=== PATIENT | male | born 1965 | race Caucasian/White ===

== ENCOUNTER → 2017-09-08 | Outpatient (CLI) | payer OTHER ==
[~2017-09-08] MED LIST: ATOR10TA9 PO; CINN500C2 PO; GABA100C PO; MAGN400T7 PO; MELO15TA24 PO; NIAC500T10 PO
[2017-09-08 12:36] LABS: HEMOGLOBIN 15.3 g/dL (13.7-18.0); WHITE BLOOD COUNT 6.9 x10^3/uL (3.4-10)
[2017-09-08 12:46] LABS: BLOOD UREA NITROGEN 25 mg/dL (7-18)
== END | disposition home or self-care (01) ==
LOC: STAR 11:25
PROVIDERS: ATTEND Neurological Surgery
DX: Z01.818 Encounter for other preprocedural examination (principal); M51.36 Other intervertebral disc degeneration, lumbar region; R79.1 Abnormal coagulation profile
CPT/HCPCS: 36415; 71020; 80048; 81003; 85025; 85610; 85730; 93005

== ENCOUNTER 2017-09-24 10:00 | Inpatient (IN) | payer OTHER ==
[~2017-09-24] VITALS: Ht 172.7 cm; Wt 83.2 kg
[2017-10-21] MEDS ORDERED: VANCOMYCIN 1,000 MG ONE (06:51)
[2017-10-21] MEDS ORDERED: BACITRACIN 50,000 UNIT ONE (06:51)
[2017-10-21] MEDS ORDERED: BUPIVACAINE/PF 0.5% ONE ×2 (06:51→13:33)
[2017-10-21] MEDS ORDERED: THROMBIN 5,000 UNIT VIAL TP ONE ×2 (06:51→14:39)
[2017-10-21] MEDS ORDERED: LACTATED RINGERS 1,000 ML IV SCH (10:23)
[2017-10-21] MEDS ORDERED: ATOR20TA9 PO (10:51)
[2017-10-21 10:52] VITALS: BP 116/74
[2017-10-21 10:59] LABS: BASOPHILS # (AUTO) 0.03 x10^3/uL (0-0.1); BASOPHILS % (AUTO) 1 % (0-1); EOSINOPHILS # (AUTO) 0.57 x10^3/uL (0-0.4); EOSINOPHILS % (AUTO) 9 % (1-7); LYMPHOCYTES # (AUTO) 1.54 x10^3/uL (1-3.4); LYMPHOCYTES % (AUTO) 25 % (22-44); MD NO; MEAN CORPUSCULAR HEMOGLOBIN 28.4 pg (27.5-34.5); MEAN CORPUSCULAR HGB CONC 33.8 g/dL (33.2-36.2); MEAN PLATELET VOLUME 8.9 fL (7.4-10.4); MONOCYTES # (AUTO) 0.66 x10^3/uL (0.2-0.8); MONOCYTES % (AUTO) 11 % (2-9); NEUTROPHILS # (AUTO) 3.35 x10^3/uL (1.8-6.8); NEUTROPHILS % (AUTO) 55 % (42-75); PLATELET COUNT 161 x10^3/uL (130-400); RED BLOOD COUNT 5.49 x10^6/uL (4.38-5.82); RED CELL DISTRIBUTION WIDTH 12.7 % (9.4-14.8)
[2017-10-21 11:08] LABS: ANION GAP 7 mmol/L (5-15); CALCIUM 8.5 mg/dL (8.5-10.1); CHLORIDE 107 mmol/L (98-107); CREATININE 0.62 mg/dL (0.7-1.3)
[2017-10-21] MEDS ORDERED: MIDAZOLAM 1 MG/ML, 2ML ONE (11:47)
[2017-10-21] MEDS ORDERED: FENTANYL PF 250 MCG/5ML ONE ×2 (11:47→13:28)
[2017-10-21] MEDS ORDERED: ROCURONIUM 10 MG/ML,10ML ONE (11:48)
[2017-10-21] MEDS ORDERED: CEFAZOLIN 1,000 MG ONE ×2 (11:49)
[2017-10-21] MEDS ORDERED: SUCCINYLCHOLINE 20 MG/ML, 10ML ONE (11:49)
[2017-10-21] MEDS ORDERED: SODIUM CHLORIDE 0.9% PF 10ML ONE (11:49)
[2017-10-21] MEDS ORDERED: PROPOFOL 10 MG/ML, 20ML ONE (11:49)
[2017-10-21] MEDS ORDERED: PROMETHAZINE 25 MG/ML, 1ML IV PRN (13:30)
[2017-10-21] MEDS ORDERED: ONDANSETRON 2MG/ML, 2ML IVPush PRN ×2 (13:30→15:30)
[2017-10-21] MEDS ORDERED: MEPERIDINE/PF 25MG/0.5ML IVPush PRN (13:30)
[2017-10-21] MEDS ORDERED: OXYcodone 5 MG/5 ML ORAL.SOL UDC PO PRN (13:30)
[2017-10-21] MEDS ORDERED: ACETAMINOPHEN 325 MG TABLET PO PRN (13:30)
[2017-10-21] MEDS ORDERED: LABETALOL 5MG/ML, 20ML IV PRN (13:30)
[2017-10-21] MEDS ORDERED: FENTANYL PF 100 MCG/2ML IV PRN (13:30)
[2017-10-21] MEDS ORDERED: hydrALAzine 20 MG/ML, 1ML IV PRN (13:30)
[2017-10-21] MEDS ORDERED: EPINEPHRINE 1 MG/ML, 1ML ONE (13:33)
[2017-10-21] MEDS ORDERED: PROPOFOL 50 ML ONE (14:08)
[2017-10-21] MEDS ORDERED: DIPHENHYDRAMINE 50 MG/ML, 1ML IVPush PRN (15:30)
[2017-10-21] MEDS ORDERED: MEPERIDINE/PF 100 MG/ML IM PRN (15:30)
[2017-10-21] MEDS ORDERED: PHARMACY MAY ADJ FOR RENAL FX MC PRN (15:30)
[2017-10-21] MEDS ORDERED: morphine SULFATE 10 MG/ML, 1ML IVPush PRN (15:30)
[2017-10-21] MEDS ORDERED: MAGNESIUM HYDROXIDE 8%, 30ML UDC PO PRN (15:30)
[2017-10-21] MEDS ORDERED: HYDROmorphone PCA 30 MG/30 ML IV PRN (15:30)
[2017-10-21] MEDS ORDERED: METHOCARBAMOL 750 MG TABLET PO PRN (15:30)
[2017-10-21] MEDS ORDERED: BISACODYL 10 MG SUPP PR PRN (15:30)
[2017-10-21] MEDS ORDERED: PROMETHAZINE 25 MG/ML, 1ML IM PRN (15:30)
[2017-10-21] MEDS ORDERED: HYDROmorphone PCA 30 MG/30 ML ONE (15:41)
[2017-10-21] MEDS ORDERED: OXYcodone 5 MG/5 ML ORAL.SOL UDC ONE (15:42)
[2017-10-21] MEDS ORDERED: ACETAMINOPHEN 650 MG/20.3 ML UDC ONE (15:42)
[2017-10-21] MEDS: HYDROmorphone 1 MG/ML, 1ML IV PRN ×2 (15:56→16:04)
[2017-10-21] MEDS ORDERED: HYDROmorphone 2 MG/ML, 1ML ONE (16:02)
[2017-10-21] MEDS ORDERED: FENTANYL PF 100 MCG/2ML ONE (16:07)
[2017-10-21 19:10] VITALS: BP 100/54
[2017-10-21] MEDS: SODIUM CHLORIDE FLUSH 10ML SYR IVF SCH (21:00)
[2017-10-21] MEDS: ATORVASTATIN 20 MG TABLET PO SCH (22:39)
[2017-10-21] MEDS: CEFAZOLIN PMX 1GM/50ML 50 ML IVPB SCH (22:39)
[2017-10-21] MEDS: NS + 20MEQ KCL 1,000 ML IV SCH (23:18)
[2017-10-21 23:23] VITALS: BP 109/69
[2017-10-22 03:10] VITALS: BP 101/60
[2017-10-22] MEDS: NS + 20MEQ KCL 1,000 ML IV SCH ×2 (05:30→18:04)
[2017-10-22] MEDS: OXYcodone/APAP 10/325MG TABLET PO PRN ×5 (05:32→22:40)
[2017-10-22] MEDS: CEFAZOLIN PMX 1GM/50ML 50 ML IVPB SCH (05:32)
[2017-10-22 05:52] LABS: ANION GAP 6 mmol/L (5-15); CALCIUM 8.2 mg/dL (8.5-10.1); CHLORIDE 107 mmol/L (98-107)
[2017-10-22 06:01] LABS: BASOPHILS # (AUTO) 0.02 x10^3/uL (0-0.1); BASOPHILS % (AUTO) 0 % (0-1); EOSINOPHILS # (AUTO) 0.18 x10^3/uL (0-0.4); EOSINOPHILS % (AUTO) 2 % (1-7); LYMPHOCYTES # (AUTO) 1.37 x10^3/uL (1-3.4); LYMPHOCYTES % (AUTO) 16 % (22-44); MD NO; MEAN CORPUSCULAR HEMOGLOBIN 28.6 pg (27.5-34.5); MEAN CORPUSCULAR HGB CONC 33.8 g/dL (33.2-36.2); MEAN CORPUSCULAR VOLUME 84.5 fL (81-97); MEAN PLATELET VOLUME 9.2 fL (7.4-10.4); MONOCYTES # (AUTO) 1.15 x10^3/uL (0.2-0.8); MONOCYTES % (AUTO) 13 % (2-9); NEUTROPHILS # (AUTO) 6.14 x10^3/uL (1.8-6.8); NEUTROPHILS % (AUTO) 69 % (42-75); PLATELET COUNT 144 x10^3/uL (130-400); RED BLOOD COUNT 4.39 x10^6/uL (4.38-5.82); RED CELL DISTRIBUTION WIDTH 12.6 % (9.4-14.8)
[2017-10-22 08:30] VITALS: BP 108/69
[2017-10-22] MEDS: SODIUM CHLORIDE FLUSH 10ML SYR IVF SCH ×2 (09:00→21:09)
[2017-10-22] MEDS: SENNA/DOCUSATE TABLET PO SCH (09:31)
[2017-10-22] MEDS: MAGNESIUM OXIDE 400 MG TABLET PO SCH (09:31)
[2017-10-22] MEDS: GABAPENTIN 100 MG CAPSULE PO SCH (09:31)
[2017-10-22] MEDS: TIZANIDINE 4MG TABLET PO SCH ×2 (09:36→16:53)
[2017-10-22 14:30] VITALS: BP 121/63
[2017-10-22 18:57] VITALS: BP 128/73
[2017-10-22] MEDS: ATORVASTATIN 20 MG TABLET PO SCH (21:09)
[2017-10-23] MEDS: TIZANIDINE 4MG TABLET PO SCH ×3 (01:20→16:26)
[2017-10-23 01:36] VITALS: BP 146/85
[2017-10-23] MEDS: OXYcodone/APAP 10/325MG TABLET PO PRN ×5 (02:43→16:24)
[2017-10-23] MEDS: NS + 20MEQ KCL 1,000 ML IV SCH ×2 (04:30→11:22)
[2017-10-23 05:26] LABS: ANION GAP 4 mmol/L (5-15); CALCIUM 7.7 mg/dL (8.5-10.1); CHLORIDE 102 mmol/L (98-107)
[2017-10-23 05:28] LABS: CREATININE 0.63 mg/dL (0.7-1.3)
[2017-10-23 05:30] LABS: BASOPHILS # (AUTO) 0.02 x10^3/uL (0-0.1); BASOPHILS % (AUTO) 0 % (0-1); EOSINOPHILS # (AUTO) 0.16 x10^3/uL (0-0.4); EOSINOPHILS % (AUTO) 2 % (1-7); LYMPHOCYTES # (AUTO) 1.03 x10^3/uL (1-3.4); LYMPHOCYTES % (AUTO) 10 % (22-44); MD NO; MEAN CORPUSCULAR HEMOGLOBIN 28.9 pg (27.5-34.5); MEAN CORPUSCULAR HGB CONC 34.4 g/dL (33.2-36.2); MEAN PLATELET VOLUME 8.9 fL (7.4-10.4); MONOCYTES # (AUTO) 1.44 x10^3/uL (0.2-0.8); MONOCYTES % (AUTO) 14 % (2-9); NEUTROPHILS # (AUTO) 7.67 x10^3/uL (1.8-6.8); NEUTROPHILS % (AUTO) 74 % (42-75); PLATELET COUNT 132 x10^3/uL (130-400); RED BLOOD COUNT 3.85 x10^6/uL (4.38-5.82); RED CELL DISTRIBUTION WIDTH 12.5 % (9.4-14.8)
[2017-10-23 07:29] VITALS: BP 118/78
[2017-10-23] MEDS: MAGNESIUM OXIDE 400 MG TABLET PO SCH (09:54)
[2017-10-23] MEDS: SODIUM CHLORIDE FLUSH 10ML SYR IVF SCH ×2 (09:54→19:49)
[2017-10-23] MEDS: GABAPENTIN 100 MG CAPSULE PO SCH (09:54)
[2017-10-23] MEDS: SENNA/DOCUSATE TABLET PO SCH (09:54)
[2017-10-23] MEDS: DIAZEPAM 5 MG TABLET PO PRN ×2 (11:15→19:49)
[2017-10-23] MEDS ORDERED: OXYC-307 PO (12:22)
[2017-10-23 14:17] VITALS: BP 108/62
[2017-10-23 19:17] VITALS: BP 114/57
[2017-10-23] MEDS: ATORVASTATIN 20 MG TABLET PO SCH (19:49)
[2017-10-24] MEDS: NS + 20MEQ KCL 1,000 ML IV SCH ×2 (00:30→08:42)
[2017-10-24] MEDS: TIZANIDINE 4MG TABLET PO SCH ×2 (00:40→08:41)
[2017-10-24] MEDS: OXYcodone/APAP 10/325MG TABLET PO PRN ×4 (00:40→08:41)
[2017-10-24 01:20] VITALS: BP 109/66
[2017-10-24 05:23] LABS: MEAN CORPUSCULAR HEMOGLOBIN 28.5 pg (27.5-34.5); MEAN CORPUSCULAR VOLUME 83.9 fL (81-97); MEAN PLATELET VOLUME 8.8 fL (7.4-10.4); PLATELET COUNT 148 x10^3/uL (130-400); RED BLOOD COUNT 3.91 x10^6/uL (4.38-5.82); RED CELL DISTRIBUTION WIDTH 12.6 % (9.4-14.8)
[2017-10-24 05:35] LABS: CHLORIDE 100 mmol/L (98-107)
[2017-10-24 05:38] LABS: ANION GAP 6 mmol/L (5-15); CREATININE 0.59 mg/dL (0.7-1.3)
[2017-10-24 06:15] LABS: BASOPHILS # (AUTO) 0.02 x10^3/uL (0-0.1); BASOPHILS % (AUTO) 0 % (0-1); EOSINOPHILS # (AUTO) 0.17 x10^3/uL (0-0.4); EOSINOPHILS % (AUTO) 2 % (1-7); LYMPHOCYTES # (AUTO) 1.37 x10^3/uL (1-3.4); LYMPHOCYTES % (AUTO) 12 % (22-44); MD SCAN; MONOCYTES # (AUTO) 1.51 x10^3/uL (0.2-0.8); MONOCYTES % (AUTO) 14 % (2-9); NEUTROPHILS # (AUTO) 8.08 x10^3/uL (1.8-6.8); NEUTROPHILS % (AUTO) 73 % (42-75)
[2017-10-24 07:55] VITALS: BP 117/75
[2017-10-24] MEDS: MAGNESIUM OXIDE 400 MG TABLET PO SCH (08:41)
[2017-10-24] MEDS: SENNA/DOCUSATE TABLET PO SCH (08:41)
[2017-10-24] MEDS: SODIUM CHLORIDE FLUSH 10ML SYR IVF SCH (08:41)
[2017-10-24] MEDS: GABAPENTIN 100 MG CAPSULE PO SCH (08:41)
[2017-10-24] MEDS ORDERED: PNEUMOCOCCAL 23 VACCINE IM-VACC ONE (09:30)
[2017-10-24] MEDS ORDERED: FLU VACC QS2017-18 (36MOS+) UP/PF 0.5 ML IM-VACC ONE (09:30)
[2017-10-24] MEDS ORDERED: TIZA4CAP PO (09:40)
== END 2017-10-24 10:05 | disposition home or self-care (01) | DRG 460 ==
LOC: ORIP 10-21 09:55 → 4NOR 10-21 17:34
PROVIDERS: ADMIT Neurological Surgery; ATTEND Neurological Surgery
PROC: 01NB0ZZ Release Lumbar Nerve, Open Approach (ICD-10-PCS; 2017-10-21)
PROC: 0SG30AJ Fusion of Lumbosacral Joint with Interbody Fusion Device, Posterior Approach, Anterior Column, Open Approach (ICD-10-PCS; principal; 2017-10-21 13:00)
DX: M48.07 Spinal stenosis, lumbosacral region (principal); E78.00 Pure hypercholesterolemia, unspecified; M54.17 Radiculopathy, lumbosacral region; Z23 Encounter for immunization
CPT/HCPCS: 36415; 72100; 80048; 85025; 90686; 90732; 95938; 95941; C1713; C1776; J0171; J0690; J1170; J2250; J2704; J3010; J3370; J3480; J3490; C1762; J0330; J7120